=== PATIENT | male | born 1970 | race Caucasian/White ===

== ENCOUNTER 2020-11-13 07:59 | Observation (INO) | payer SELFPAY ==
[2020-11-13 08:31] LABS: #Basophils 0.1 thou/uL (0.0-0.2); #Eosinphils 0.4 thou/uL (0.0-0.7); #Lymphocytes 3.2 thou/uL (1.20-3.40); #Monocytes 0.9 thou/uL (0.11-0.59); #Neutrophils 3.7 thou/uL (1.40-6.50); %Basophils 0.8 % (0.0-1.0); %Eosinophils 4.5 % (0.0-10.0); %Lymphocytes 39.1 % (21.0-51.0); %Monocytes 10.7 % (0.0-10.0); %Neutrophils 44.9 % (42.0-75.0); Hemoglobin 15.6 g/dL (14.0-18.0); Mean Corpuscular HGB CONC 32.7 g/dL (32.0-36.0); Mean Corpuscular Hemoglobin 32.6 pg (27.0-31.0); Mean Corpuscular Volume 99.7 fL (78.0-98.0); Mean Platelet Volume 7.4 fL (7.4-10.4); Platelet Count 248 thou/uL (130-400); RBC Distribution Width 11.6 % (11.5-14.5); White Blood Cell (WBC) Count 8.2 thou/uL (4.8-10.8)
[2020-11-13] MEDS ORDERED: Aspirin 325 MG TAB ONE (08:45)
[2020-11-13] MEDS ORDERED: Morphine 4 MG/ML VIAL ONE (08:45)
[2020-11-13] MEDS ORDERED: Ondansetron PF 4 MG/2 ML Vial ONE (08:45)
[2020-11-13 09:02] LABS: ALT (SGPT) 14 U/L (8-55); AST (SGOT) 21 U/L (5-34); Albumin 4.3 g/dL (3.5-5.0); Alkaline Phosphatase 70 U/L (40-110); Anion Gap 12 mmol/L (10-20); BUN (Urea Nitrogen) 17 mg/dL (8.9-20.6); Bilirubin, Total 1.1 mg/dL (0.2-1.2); CK (CPK) 160 U/L (30-200); Calc. Creatinine Clearance 0 mL/min (70-130); Calcium 9.6 mg/dL (7.8-10.44); Carbon Dioxide 25 mmol/L (22-29); Chloride 108 mmol/L (98-107); Globulin 2.8 g/dL (2.4-3.5); Glucose 100 mg/dL (70-105); Potassium 4.8 mmol/L (3.5-5.1); Protein, Total 7.1 g/dL (6.0-8.3); Sodium 140 mmol/L (136-145)
[2020-11-13 09:20] LABS: Prothrombin Time 13.7 sec (12.0-14.7)
[2020-11-13] MEDS ORDERED: Ondansetron ODT 4 MG TAB PO PRN (10:08)
[2020-11-13] MEDS ORDERED: Calcium Carbonate 500 MG ChewTAB PO PRN (10:08)
[2020-11-13 11:02] LABS: Cardiac Risk 4.9 (Less than 4.5)
[2020-11-13] MEDS ORDERED: Iopamidol-370 76% 500 ML 1 ML ONE (11:29)
[2020-11-13 12:31] VITALS: BMI 29.1
[2020-11-13 13:03] LABS: Troponin I Less than 0.010 ng/mL (< 0.028)
[2020-11-13] MEDS: Acetaminophen 325 MG TAB PO PRN ×2 (14:25→22:53)
[2020-11-13] MEDS: Nicotine 14 MG PATCH TD SCH (14:27)
[2020-11-13] MEDS ORDERED: Gabapentin 300 MG CAP PO PRN (15:00)
[2020-11-13] MEDS ORDERED: Gabapentin 100 MG CAP PO PRN ×2 (15:03→15:17)
[2020-11-13 15:36] LABS: Troponin I Less than 0.010 ng/mL (< 0.028)
[2020-11-13] MEDS: traMADol HCl 50 MG TAB PO PRN ×2 (16:24→22:53)
[2020-11-13 20:20] LABS: SARS-CoV-2 PCR by NAA Not Detected (NotDetected)
[2020-11-13] MEDS: Gabapentin 100 MG CAP PO SCH (20:37)
[2020-11-13] MEDS ORDERED: Atorvastatin Calcium 40 MG TAB PO SCH (21:00)
[2020-11-14] MEDS ORDERED: Aspirin 81 mg Enteric Coated Tablet PO SCH (09:00)
[2020-11-14] MEDS: Gabapentin 100 MG CAP PO SCH (09:33)
[2020-11-14] MEDS: Acetaminophen 325 MG TAB PO PRN (09:34)
[2020-11-14] MEDS: Nicotine 14 MG PATCH TD SCH (09:35)
[2020-11-14 11:30] LABS: Amphetamine Not Detected (NotDetected); Barbiturates Screen Not Detected (NotDetected); Benzodiazepine Screen Not Detected (NotDetected); Cocaine Metabolite Screen Not Detected (NotDetected); Methadone Not Detected (NotDetected); Methamphetamine Not Detected (NotDetected); Opiate Screen Detected (NotDetected); Oxycodone Screen Not Detected (NotDetected); Phencyclidine (PCP) Not Detected (NotDetected); THC/Cannabinoid Screen Detected (NotDetected); Tricyclic Screen Not Detected (NotDetected)
[2020-11-14 11:45] VITALS: BP 121/94; TEMP 98.9
== END 2020-11-14 13:51 | disposition home or self-care (01) ==
LOC: ERS 07:59 → 3SE 09:30
PROVIDERS: ADMIT Family Medicine; ATTEND Family Medicine
DX: G45.9 Transient cerebral ischemic attack, unspecified (principal); F17.210 Nicotine dependence, cigarettes, uncomplicated; M51.26 Other intervertebral disc displacement, lumbar region; M25.512 Pain in left shoulder; M79.602 Pain in left arm; F12.10 Cannabis abuse, uncomplicated
CPT/HCPCS: 36415; 36416; 70450; 70496; 70498; 70551; 71045; 80053; 80061; 80306; 82550; 83036; 84443; 84484; 85025; 85610; 93005; 96374; 96375; G0378; J2270; J2405; Q9967; U0003; U0005

== ENCOUNTER 2021-06-22 10:02 | Emergency (ER) | payer SELFPAY ==
[2021-06-22] MEDS ORDERED: Diazepam 10 MG/2 ML SYRINGE ONE (11:29)
[2021-06-22] MEDS ORDERED: Ketorolac Tromethamine 30 MG/ML VIAL ONE (11:30)
== END 2021-06-22 12:47 | disposition short-term general hospital (02) ==
LOC: ERS 10:02
DX: S16.1XXA Strain of muscle, fascia and tendon at neck level, initial encounter (principal); M62.838 Other muscle spasm; M25.512 Pain in left shoulder; F17.210 Nicotine dependence, cigarettes, uncomplicated
CPT/HCPCS: 96372; J1885; J3360

== ENCOUNTER 2021-08-06 03:51 | Emergency (ER) | payer SELFPAY ==
[2021-08-06] MEDS ORDERED: Ketorolac Tromethamine 30 MG/ML VIAL ONE (06:29)
[2021-08-06] MEDS ORDERED: Morphine 4 MG/ML VIAL ONE (06:29)
[2021-08-06] MEDS ORDERED: Dexamethasone 10 MG/ML VIAL ONE (06:29)
== END 2021-08-06 06:52 | disposition home or self-care (01) ==
LOC: ERS 03:51
DX: M54.12 Radiculopathy, cervical region (principal); F17.210 Nicotine dependence, cigarettes, uncomplicated
CPT/HCPCS: 96372; J1100; J1885; J2270

== ENCOUNTER 2021-11-05 13:03 | Outpatient (CLI) | payer OTHER | END 2021-11-05 13:04 | disposition home or self-care (01) | LOC: BICMRI 13:03 | PROVIDERS: ATTEND Neurological Surgery | DX: M54.50 Low back pain, unspecified (principal); M54.2 Cervicalgia; M47.812 Spondylosis without myelopathy or radiculopathy, cervical region; M47.816 Spondylosis without myelopathy or radiculopathy, lumbar region; M51.36 Other intervertebral disc degeneration, lumbar region; M48.061 Spinal stenosis, lumbar region without neurogenic claudication; M48.07 Spinal stenosis, lumbosacral region | CPT/HCPCS: 72050; 72141; 72148 ==

== ENCOUNTER 2021-12-20 06:56 | Emergency (ER) | payer SELFPAY ==
[2021-12-20] MEDS ORDERED: Morphine 4 MG/ML VIAL ONE ×2 (07:21→09:56)
[2021-12-20] MEDS ORDERED: Ondansetron ODT 4 MG TAB ONE (07:46)
[2021-12-20 08:43] LABS: Bilirubin Negative (Negative); Blood, Urine Negative (Negative); Clarity Clear (Clear); Glucose, Urine (Dipstick) Normal (Negative); Ketone, Urine Negative (Negative); Leukocyte Negative Leu/uL (Negative); Nitrite Negative (Negative); Protein, Urine (Dipstick) Negative (Neg-Trace); Specific Gravity, Urine 1.022 (1.002-1.036); Urobilinogen Normal mg/dL (Less than 2)
== END 2021-12-20 10:51 | disposition home or self-care (01) ==
LOC: ERS 06:56
DX: M54.12 Radiculopathy, cervical region (principal); F17.210 Nicotine dependence, cigarettes, uncomplicated
CPT/HCPCS: 81003; 96372; 99283; J2270; Q0162

== ENCOUNTER 2022-03-05 11:32 | Outpatient (CLI) | payer OTHER ==
[2022-03-05 12:45] LABS: Hemoglobin 14.8 g/dL (13.5-17.5); Mean Corpuscular HGB CONC 34.3 g/dL (32.0-36.0); Mean Corpuscular Hemoglobin 32.9 pg (27.0-33.0); Mean Corpuscular Volume 95.8 fl (81.2-95.1); Mean Platelet Volume 9.2 fl (7.4-10.4); Platelet Count 304 10x3/uL (150-450); RBC Distribution Width 12.8 % (11.5-14.5); White Blood Cell (WBC) Count 10.7 10x3/uL (3.5-10.5)
[2022-03-05 12:59] LABS: INR-International Normal Ratio 0.9; Prothrombin Time 9.9 sec (9.5-12.1)
== END 2022-03-05 11:33 | disposition home or self-care (01) ==
LOC: LABBT 11:32
PROVIDERS: ATTEND Neurological Surgery
DX: Z01.818 Encounter for other preprocedural examination (principal); M50.01 Cervical disc disorder with myelopathy, high cervical region; M50.022 Cervical disc disorder at C5-C6 level with myelopathy; M50.023 Cervical disc disorder at C6-C7 level with myelopathy
CPT/HCPCS: 85027; 85610; 85730; 93005; 93010

== ENCOUNTER 2022-03-09 05:34 | Day surgery (SDC) | payer OTHER ==
[2022-03-08 08:45] VITALS: BMI 27.3
[2022-03-09] MEDS ORDERED: Thrombin 5000 UNITS/5 ML VIAL ONE (06:09)
[2022-03-09] MEDS ORDERED: Neomycin-Polymyxin 1 ML AMP ONE (06:09)
[2022-03-09] MEDS ORDERED: Sodium Chloride 0.9% 100 ML ONE (06:42)
[2022-03-09] MEDS ORDERED: CEFAZOLIN 2 GM VIAL ONE (06:42)
[2022-03-09] MEDS ORDERED: Midazolam HCl 2 mg/2 ml Vial ONE (06:57)
[2022-03-09] MEDS ORDERED: Fentanyl 250 MCG/5 ML VIAL ONE (07:03)
[2022-03-09] MEDS ORDERED: Dexmedetomidine 200 MCG/2 ML VIAL ONE (07:03)
[2022-03-09] MEDS ORDERED: PROPOFOL 200 MG/20 ML VIAL ONE (07:05)
[2022-03-09] MEDS ORDERED: Glycopyrrolate 0.2 MG/ML 5 ML SYRINGE ONE (07:05)
[2022-03-09] MEDS ORDERED: Lidocaine 1% PF 5 ML VIAL ONE (07:05)
[2022-03-09] MEDS ORDERED: Rocuronium Bromide 10 MG/ML (10ML VIAL) ONE (07:05)
[2022-03-09] MEDS ORDERED: NEOSTIGMINE 3 MG/3 ML SYR 3 MG/3 ML SYRINGE ONE (07:05)
[2022-03-09] MEDS ORDERED: ePHEDrine 50 MG/ML VIAL ONE (07:05)
[2022-03-09] MEDS ORDERED: Fentanyl 100 MCG/2 ML VIAL ONE (12:13)
[2022-03-09] MEDS ORDERED: Tamsulosin HCl 0.4 MG CAP ONE (12:51)
[2022-03-09] MEDS ORDERED: HYDROcodone/Acetaminophen 10/325 mg Tablet ONE ×2 (13:33→13:34)
[2022-03-09] MEDS ORDERED: Cyclobenzaprine 10 MG TAB ONE (14:40)
== END 2022-03-09 15:35 | disposition home or self-care (01) ==
LOC: SDC 05:34
PROVIDERS: ATTEND Neurological Surgery
PROC: 0RG20A0 Fusion of 2 or more Cervical Vertebral Joints with Interbody Fusion Device, Anterior Approach, Anterior Column, Open Approach (ICD-10-PCS; principal; 2022-03-09)
DX: M50.01 Cervical disc disorder with myelopathy, high cervical region (principal); M50.11 Cervical disc disorder with radiculopathy, high cervical region; M48.02 Spinal stenosis, cervical region; F17.200 Nicotine dependence, unspecified, uncomplicated; Z86.73 Personal history of transient ischemic attack (TIA), and cerebral infarction without residual deficits; Z79.899 Other long term (current) drug therapy
CPT/HCPCS: C1713; J2250; J2704; J3010; J3490; L0174

== ENCOUNTER 2022-05-13 13:05 | Outpatient (CLI) | payer OTHER | END 2022-05-13 13:06 | disposition home or self-care (01) | LOC: TBSIIMAG 13:05 | PROVIDERS: ATTEND Neurological Surgery | DX: M47.12 Other spondylosis with myelopathy, cervical region (principal); M47.22 Other spondylosis with radiculopathy, cervical region; Z98.1 Arthrodesis status | CPT/HCPCS: 72040 ==